=== PATIENT | female | born 1995 | race Caucasian/White ===

== ENCOUNTER 2017-03-28 23:46 | Emergency (ER) | payer OTHER ==
[~2017-03-28] VITALS: Ht 170.2 cm; Wt 107.0 kg
[~2017-03-28 23:46] MED LIST: BENA1TAB9 PO; HYDR-3240 PO
[2017-03-29] MEDS ORDERED: BUPR100T8 PO (00:07)
[2017-03-29] MEDS ORDERED: ONDANSETRON 2MG/ML, 2ML ONE (00:17)
[2017-03-29] MEDS ORDERED: ONDANSETRON 2MG/ML, 2ML IVPush ONE (00:30)
[2017-03-29 00:47] LABS: BLOOD UREA NITROGEN 8 mg/dL (7-18)
[2017-03-29] MEDS ORDERED: OMNIPAQUE 350 MG/ML, 100ML BOTTLE ONE (01:27)
[2017-03-29] MEDS ORDERED: KETOROLAC 30 MG/1 ML IVPush ONE (02:30)
[2017-03-29] MEDS ORDERED: DIAZEPAM 5 MG TABLET PO ONE (02:30)
[2017-03-29] MEDS ORDERED: KETOROLAC 30 MG/1 ML ONE (02:36)
[2017-03-29] MEDS ORDERED: DIAZEPAM 5 MG TABLET ONE (02:36)
[2017-03-29 03:10] VITALS: BP 154/89
== END 2017-03-29 03:12 | disposition home or self-care (01) ==
LOC: ED 23:59
DX: S29.012A Strain of muscle and tendon of back wall of thorax, initial encounter (principal); S39.012A Strain of muscle, fascia and tendon of lower back, initial encounter; S21.90XA Unspecified open wound of unspecified part of thorax, initial encounter; V43.52XA Car driver injured in collision with other type car in traffic accident, initial encounter; Y93.C9 Activity, other involving computer technology and electronic devices; Y93.89 Activity, other specified; Y92.410 Unspecified street and highway as the place of occurrence of the external cause; Y99.8 Other external cause status
CPT/HCPCS: 36415; 70450; 70496; 70498; 71010; 72125; 72128; 73030; 80048; 82040; 82962; 84703; 85025; 93005; 96374; 96375; 99285; J1885; J2405; Q9967

== ENCOUNTER → 2017-07-24 | Outpatient (CLI) | payer OTHER ==
[~2017-07-24] MED LIST changes: +BUPR100T8 PO
[2017-07-24 10:00] LABS: HEMATOCRIT 43.6 % (34.6-47.8); HEMOGLOBIN 14.7 g/dL (11.7-16.4); WHITE BLOOD COUNT 10.6 x10^3/uL (4.5-13.2)
[2017-07-24 10:13] LABS: ASPARTATE AMINO TRANSFERASE 15 U/L (15-37); BLOOD UREA NITROGEN 9 mg/dL (7-18)
== END | disposition home or self-care (01) ==
LOC: LAB 09:47
PROVIDERS: ATTEND Family Medicine
DX: E55.9 Vitamin D deficiency, unspecified (principal); R00.2 Palpitations; R03.0 Elevated blood-pressure reading, without diagnosis of hypertension; R30.0 Dysuria
CPT/HCPCS: 36415; 80053; 82306; 84439; 84443; 85025

== ENCOUNTER → 2017-08-28 | Outpatient (CLI) | payer OTHER ==
[~2017-08-28] MED LIST changes: +OMNIPAQUE 350 MG/ML, 100ML BOTTLE ONE
== END | disposition home or self-care (01) ==
LOC: CFH 11:37
PROVIDERS: ATTEND Internal Medicine Cardiovascular Disease
DX: R07.9 Chest pain, unspecified (principal); R00.2 Palpitations; R10.84 Generalized abdominal pain; I10 Essential (primary) hypertension
CPT/HCPCS: 71260; 74160; Q9967

== ENCOUNTER 2017-09-29 20:56 | Emergency (ER) | payer OTHER ==
[~2017-09-29] VITALS: Ht 170.2 cm; Wt 115.0 kg
[~2017-09-29 20:56] MED LIST changes: -OMNIPAQUE 350 MG/ML, 100ML BOTTLE ONE
[2017-09-29 20:57] VITALS: BP 168/124
[2017-09-29] MEDS ORDERED: AMLO-472 PO (21:48)
[2017-09-29 21:58] LABS: RAPID INFLUENZA A Negative (Negative); RAPID INFLUENZA B Negative (Negative)
[2017-09-29] MEDS ORDERED: SODIUM CHLORIDE 0.9% 1,000ML IVBOLUS ONE (23:00)
== END 2017-09-30 00:33 ==
LOC: ED 22:54
DX: J01.00 Acute maxillary sinusitis, unspecified (principal); B97.89 Other viral agents as the cause of diseases classified elsewhere; I10 Essential (primary) hypertension
CPT/HCPCS: 71020; 87400; 96360; 96361; 99285; J7030

== ENCOUNTER 2017-12-23 11:27 | Emergency (ER) | payer OTHER ==
[~2017-12-23] VITALS: Ht 170.2 cm; Wt 105.0 kg
[~2017-12-23 11:27] MED LIST changes: +AMLO-472 PO
[2017-12-23 12:25] LABS: BASOPHILS # (AUTO) 0.03 x10^3/uL (0-0.1); BASOPHILS % (AUTO) 1 % (0-1); EOSINOPHILS # (AUTO) 0.12 x10^3/uL (0-0.4); EOSINOPHILS % (AUTO) 2 % (1-7); LYMPHOCYTES # (AUTO) 1.92 x10^3/uL (1-3.4); LYMPHOCYTES % (AUTO) 26 % (22-44); MD NO; MEAN CORPUSCULAR HEMOGLOBIN 28.6 pg (27.0-34.8); MEAN CORPUSCULAR VOLUME 86.8 fL (80-100); MONOCYTES # (AUTO) 0.68 x10^3/uL (0.2-0.8); MONOCYTES % (AUTO) 9 % (2-9); NEUTROPHILS % (AUTO) 62 % (42-75); PLATELET COUNT 361 x10^3/uL (130-400); RED BLOOD COUNT 5.42 x10^6/uL (3.82-5.3); RED CELL DISTRIBUTION WIDTH 14.1 % (9.6-15.2)
[2017-12-23 12:35] LABS: ANION GAP 10 mmol/L (5-15); CALCIUM 9.4 mg/dL (8.5-10.1); CHLORIDE 105 mmol/L (98-107)
[2017-12-23 12:42] LABS: ALANINE AMINOTRANSFERASE 94 U/L (12-78); ALKALINE PHOSPHATASE 92 U/L (45-117); BILIRUBIN,TOTAL 0.4 mg/dL (0.2-1.0); CREATININE 1.13 mg/dL (0.55-1.02); TOTAL PROTEIN 8.3 g/dL (6.4-8.2)
[2017-12-23 15:13] VITALS: BP 159/91
[2017-12-23 15:26] LABS: MICROSCOPIC AUTO
[2017-12-23] MEDS ORDERED: SODIUM CHLORIDE 0.9% 1,000 ML IV ONE (15:31)
[2017-12-23 15:32] LABS: CULTURE INDICATED? YES
[2017-12-23] MEDS ORDERED: DICYCLOMINE 10 MG/ML, 2ML ONE (15:44)
[2017-12-23 15:55] LABS: CLOSTRIDIUM DIFFICILE ANTIGEN NEGATIVE; CLOSTRIDIUM DIFFICILE TOXIN NEGATIVE (Negative)
[2017-12-23] MEDS ORDERED: DICYCLOMINE 10 MG/ML, 2ML IM ONE (16:00)
[2017-12-23] MEDS ORDERED: SODIUM CHLORIDE 0.9% 1,000ML IVBOLUS ONE (16:00)
[2017-12-23] MEDS ORDERED: SODIUM CHLORIDE FLUSH 10ML SYR IVF ONE (16:00)
== END 2017-12-23 18:28 | disposition home or self-care (01) ==
LOC: ED 15:05
DX: K52.9 Noninfective gastroenteritis and colitis, unspecified (principal); I10 Essential (primary) hypertension; R82.99 Other abnormal findings in urine
CPT/HCPCS: 36415; 74021; 76700; 80053; 80074; 81001; 83690; 84703; 85025; 87086; 87324; 89055; 96360; 96372; 99285; J0500; J7030

== ENCOUNTER 2018-05-20 05:10 | Emergency (ER) | payer OTHER ==
[~2018-05-20] VITALS: Ht 170.2 cm; Wt 112.0 kg
[2018-05-20] MEDS ORDERED: DIPHENHYDRAMINE 50 MG/ML, 1ML ONE (05:44)
[2018-05-20] MEDS ORDERED: METOCLOPRAMIDE 5 MG/ML, 2ML ONE (05:44)
[2018-05-20] MEDS ORDERED: SODIUM CHLORIDE 0.9% 1,000ML IVBOLUS ONE (06:00)
[2018-05-20] MEDS ORDERED: DIPHENHYDRAMINE 50 MG/ML, 1ML IVPush ONE (06:00)
[2018-05-20] MEDS ORDERED: METOCLOPRAMIDE 5 MG/ML, 2ML IVPush ONE (06:00)
[2018-05-20 06:04] LABS: BASOPHILS # (AUTO) 0.07 x10^3/uL (0-0.1); BASOPHILS % (AUTO) 1 % (0-1); EOSINOPHILS # (AUTO) 0.13 x10^3/uL (0-0.4); EOSINOPHILS % (AUTO) 1 % (1-7); LYMPHOCYTES % (AUTO) 28 % (22-44); MD NO; MEAN CORPUSCULAR HEMOGLOBIN 29.6 pg (27.0-34.8); MEAN CORPUSCULAR HGB CONC 33.6 g/dL (32.4-35.8); MEAN CORPUSCULAR VOLUME 88.1 fL (80-100); MEAN PLATELET VOLUME 7.9 fL (7.4-10.4); MONOCYTES % (AUTO) 5 % (2-9); NEUTROPHILS % (AUTO) 65 % (42-75); PLATELET COUNT 420 x10^3/uL (130-400); RED BLOOD COUNT 5.11 x10^6/uL (3.82-5.3); RED CELL DISTRIBUTION WIDTH 13.4 % (9.6-15.2)
[2018-05-20 06:17] LABS: ANION GAP 9 mmol/L (5-15); CALCIUM 9.5 mg/dL (8.5-10.1); CHLORIDE 106 mmol/L (98-107); CREATININE 0.96 mg/dL (0.55-1.02)
[2018-05-20 06:21] LABS: TROPONIN I < 0.015 ng/mL (0.000-0.045)
[2018-05-20 06:45] VITALS: BP 156/72
== END 2018-05-20 06:48 | disposition home or self-care (01) ==
LOC: ED 06:02
DX: I10 Essential (primary) hypertension (principal)
CPT/HCPCS: 36415; 70450; 71045; 80048; 82040; 84484; 85025; 93005; 96361; 96374; 96375; 99285; J1200; J2765; J7030

== ENCOUNTER → 2018-09-19 | Outpatient (CLI) | payer OTHER ==
[2018-09-19 11:10] LABS: ALANINE AMINOTRANSFERASE 51 U/L (12-78); ALBUMIN 3.6 g/dL (3.4-5.0); ANION GAP 7 mmol/L (5-15); CALCIUM 8.7 mg/dL (8.5-10.1); CHLORIDE 108 mmol/L (98-107)
[2018-09-19 11:19] LABS: ALKALINE PHOSPHATASE 91 U/L (45-117); BILIRUBIN,TOTAL 0.3 mg/dL (0.2-1.0); CHOL/HDL RATIO 5.1; CHOLESTEROL, TOTAL 192 mg/dL (140-239); CREATININE 0.88 mg/dL (0.55-1.02); FREE T4 (FREE THYROXINE) 0.91 ng/dL (0.76-1.46); HDL CHOL % 20 % (28-40); HDL CHOLESTEROL (DIRECT) 38 mg/dL (40-60); LDL CHOLESTEROL,CALCULATED 119 mg/dL (54-169); LDL/HDL RATIO 3.1 (0.5-3.0); TOTAL PROTEIN 8.2 g/dL (6.4-8.2); TRIGLYCERIDES 177 mg/dL (50-200); VLDL CHOLESTEROL 35 mg/dL (0-25)
== END | disposition home or self-care (01) ==
LOC: LAB 10:45
PROVIDERS: ATTEND Family Medicine
DX: L70.0 Acne vulgaris (principal); I10 Essential (primary) hypertension; R10.9 Unspecified abdominal pain; E78.2 Mixed hyperlipidemia; E66.9 Obesity, unspecified; E55.9 Vitamin D deficiency, unspecified
CPT/HCPCS: 36415; 80053; 80061; 82306; 84439; 84443